=== PATIENT | female | born 1955 | race Caucasian/White ===

== ENCOUNTER 2017-06-01 20:54 | Inpatient (IN) | payer OTHER ==
[~2017-06-01] VITALS: Ht 165.1 cm; Wt 63.7 kg
[~2017-06-01 20:54] MED LIST: ALLERGY PILL PO; GLIM4TAB PO; JANUVIA PO; METF500T4 PO
[2017-06-01 22:11] VITALS: PULSE 62
[2017-06-01 22:15] VITALS: BP 127/71; PULSE 66; RESP 20; Ht 165.1 cm; Wt 63.7 kg
[2017-06-01] MEDS ORDERED: MTF1000T PO (22:34)
[2017-06-01] MEDS ORDERED: AZIT250T6 PO (22:34)
[2017-06-01] MEDS ORDERED: GUAI-637 PO (22:45)
[2017-06-01] MEDS ORDERED: PANT40TA3 PO (22:45)
[2017-06-01] MEDS ORDERED: INSU100C3 SQ (22:45)
[2017-06-01] MEDS ORDERED: ATOR40TA68 PO (22:45)
[2017-06-01] MEDS ORDERED: GEMF600T PO (22:45)
[2017-06-01] MEDS ORDERED: ASPI325T32 PO (22:45)
[2017-06-01] MEDS ORDERED: ENOX60DI13 SQ (22:45)
[2017-06-01] MEDS ORDERED: ALBU2.5V3 NEB (22:45)
[2017-06-01] MEDS ORDERED: NITR1PAT46 TD (22:45)
[2017-06-01] MEDS ORDERED: METO-429 PO (22:45)
[2017-06-01] MEDS ORDERED: CLOP75TA28 PO (22:45)
[2017-06-01] MEDS ORDERED: NIT4 SL (22:45)
[2017-06-01] MEDS ORDERED: GLIP5TAB13 PO (22:45)
[2017-06-01] MEDS ORDERED: IPRA3AMP INHALATION (22:45)
[2017-06-01] MEDS ORDERED: NITROGLYCERIN (SL) 0.4 MG TAB SL PRN (23:00)
[2017-06-01] MEDS ORDERED: ALBUTEROL/IPRATROPIUM (NEB) 3 ML AMP HHN PRN (23:00)
[2017-06-01] MEDS ORDERED: NACL 0.9% 3 ML SYG IV SCH (23:00)
[2017-06-01] MEDS ORDERED: GUAIFENESIN 20 MG/ML 5ML CUP PO PRN (23:00)
[2017-06-01] MEDS ORDERED: ACETAMINOPHEN 325 MG TAB PO PRN (23:00)
[2017-06-01] MEDS ORDERED: ONDANSETRON 4 MG TAB PO PRN (23:00)
[2017-06-01] MEDS ORDERED: GLUCOSE GEL 15 GRAM TUBE PO PRN ×2 (23:30)
[2017-06-01] MEDS ORDERED: GLUCOSE GEL 15 GRAM TUBE BUCCAL PRN (23:30)
[2017-06-01] MEDS ORDERED: GLUCAGON 1 MG INJ IM PRN (23:30)
[2017-06-01] MEDS ORDERED: DEXTROSE 50% 50 ML SYRINGE IV PRN ×2 (23:30)
[2017-06-01] MEDS: ALBUTEROL 0.083% (NEB) 2.5 MG/3 ML AMP NEB SCH ×2 (23:40→23:45)
[2017-06-02] VITALS (26 sets, daily range): BP systolic 96–157; BP diastolic 55–89; PULSE 59–92; RESP 15–23
[2017-06-02] MEDS: ALBUTEROL 0.083% (NEB) 2.5 MG/3 ML AMP NEB SCH ×6 (01:00→21:14)
[2017-06-02 01:09] LABS: BASOPHIL # 0.1 10^3/ul (0.0-0.1); BASOPHILS % 0.6 % (0.0-2.0); EOSINOPHILS # 0.2 10^3/ul (0.0-0.5); EOSINOPHILS % 1.8 % (0.0-7.0); HEMATOCRIT 42.9 % (37.0-47.0); HEMOGLOBIN 14.5 g/dl (12.0-16.0); LYMPHOCYTES # 2.7 10^3/ul (0.8-2.9); LYMPHOCYTES % 33.4 % (15.0-51.0); MEAN CORPUSCULAR HEMOGLOBIN 28.9 pg (29.0-33.0); MEAN CORPUSCULAR HGB CONC 33.8 g/dl (32.0-37.0); MEAN CORPUSCULAR VOLUME 85.6 fl (82.0-101.0); MEAN PLATELET VOLUME 10.1 fl (7.4-10.4); MONOCYTE # 0.6 10^3/ul (0.3-0.9); MONOCYTES % 7.1 % (0.0-11.0); NEUTROPHIL # 4.6 10^3/ul (1.6-7.5); NEUTROPHILS % 56.9 % (39.0-77.0); PLATELET COUNT 247 10^3/UL (140-415); RED BLOOD COUNT 5.01 10^6/ul (4.20-5.40); RED CELL DISTRIBUTION WIDTH 12.2 % (11.5-14.5); WHITE BLOOD COUNT 8.1 10^3/ul (4.8-10.8)
[2017-06-02 01:29] LABS: ALBUMIN 3.4 g/dl (3.3-4.9); ALBUMIN/GLOBULIN RATIO 1.13; BILIRUBIN,INDIRECT 0.6 mg/dl (0-1.1); BILIRUBIN,TOTAL 0.6 mg/dl (0.2-1.3); CALCIUM 9.4 mg/dl (8.4-10.2); CHOL/HDL RATIO 5.1 RATIO; CREATININE 0.5 mg/dl (0.44-1.00); MAGNESIUM 1.7 mg/dl (1.7-2.5); POTASSIUM 3.3 mmol/L (3.5-5.1); TOTAL PROTEIN 6.4 g/dl (6.1-8.1)
[2017-06-02] MEDS: ACCU-CHEK XX SCH (02:00)
[2017-06-02] MEDS ORDERED: ACCU-CHEK XX SCH (02:00)
[2017-06-02] MEDS ORDERED: POTASSIUM CHLORIDE (SR) 20 MEQ TAB PO ONE (06:52)
[2017-06-02] MEDS ORDERED: glipiZIDE 5 MG TAB PO SCH (07:25)
[2017-06-02] MEDS ORDERED: GLIMEPIRIDE 4 MG TAB PO SCH (07:55)
[2017-06-02] MEDS ORDERED: metFORMIN 500 MG TAB PO SCH (07:55)
[2017-06-02] MEDS ORDERED: METOPROLOL 50 MG TAB PO SCH (09:00)
[2017-06-02] MEDS ORDERED: PANTOPRAZOLE (EC) 40 MG TAB PO SCH (09:00)
[2017-06-02] MEDS ORDERED: ASPIRIN (EC) 325 MG TAB PO SCH (09:00)
[2017-06-02] MEDS ORDERED: CLOPIDOGREL 75 MG TAB PO SCH (09:00)
[2017-06-02] MEDS: GEMFIBROZIL 600 MG TAB PO SCH ×2 (09:01→21:42)
--- NOTE | 2017-06-02 09:06 | HP ---
Date/Time of Note Date/Time of Note DATE: 06/02/17 TIME: 09:01 Assessment/Plan VTE Prophylaxis VTE Prophylaxis Intervention: LMWH Lines/Catheters IV Catheter Type (from Nrsg): Mid Line Assessment/Plan Assessment/Plan ASSESSMENT 61-year-old female with a history of CAD, asthma, diabetes, gastritis with erosion presented to outside hospital with chest pain/NSTEMI, transferred here for cardiac cath PLAN Telemetry monitoring Continue cardiac medications Insulin for management of her diabetes PPI, given history of gastritis with erosion Continue therapeutic dose of Lovenox And to be seen by cardiology for cardiac cath GI ppx: PPI DVT ppx: Lovenox HPI/ROS Admit Date/Time Admit Date/Time Jun 01, 2017 at 22:00 Hx of Present Illness This is a 61-year-old female with a history of CAD, asthma, diabetes, gastritis with erosion who initially presented to the outside hospital with chest pain. Patient was transferred to to [facility] because of insurance reasons. She was accepted by Dr. Foster, the cartridge belt puncher for further cardiac cath. Patient has been started on a therapeutic dose of Lovenox at the outside hospital. Currently patient overall is feeling well but complains of still having intermittent chest pain. PMH/Family/Social Social History Smoking Status: Unknown if ever smoked Exam/Review of Systems Vital Signs Vitals Vital Signs Date Time Temp Pulse Resp B/P Pulse Ox O2 Delivery O2 Flow Rate FiO2 06/02/17 08:48 61 06/02/17 07:23 98.4 19 145/68 96 06/01/17 22:15 Room Air Intake and Output 06/01/17 06/01/17 06/02/17 15:00 23:00 07:00 Intake Total 220 ml Balance 220 ml Labs Result Diagram: 06/02/17 0052 06/02/17 0052 Medications Medications Current Medications Ondansetron HCl (Zofran Tab) 4 mg Q6H PRN PO NAUSEA AND/OR VOMITING; Start at 23:00 Acetaminophen (Tylenol Tab) 650 mg Q6H PRN PO PAIN LEVEL 1-3 OR FEVER; Start at 23:00 Aspirin (Ecotrin) 325 mg DAILY PO ; Start 06/02/17 at 09:00 Atorvastatin Calcium (Lipitor) 40 mg QHS PO ; Start 06/02/17 at 21:00 Clopidogrel Bisulfate (plaVIX) 75 mg DAILY PO ; Start 06/02/17 at 09:00 Gemfibrozil (Lopid) 600 mg BID PO ; Start 06/02/17 at 09:00 Guaifenesin (Robitussin Liquid Cup) 100 mg Q4H PRN PO COUGH; Start 06/01/17 at 23:00 Metoprolol Tartrate (Lopressor) 50 mg BID PO ; Start 06/02/17 at 09:00 Nitroglycerin (Nitroglycerin (Sl Tab) 0.4 Mg) 1 tab [id number] PRN SL CHEST PAIN ; Start 06/01/17 at 23:00 Pantoprazole (Protonix Tab) 40 mg DAILY PO ; Start 06/02/17 at 09:00 Insulin Glargine (Lantus) 10 unit DAILY@08 SC ; Start 06/02/17 at 08:00 Diagnostic Test (Pha) (Accu-Chek) 1 ea 02 XX ; Start 06/02/17 at 02:00 Miscellaneous Information 1 ea NOTE XX ; Start 06/01/17 at 23:30 Glucose (Glutose) 15 gm Q15M PRN PO DECREASED GLUCOSE; Start 06/01/17 at 23:30 Glucose (Glutose) 22.5 gm Q15M PRN PO DECREASED GLUCOSE; Start 06/01/17 at 23: 30 Dextrose (D50w Syringe) 25 ml Q15M PRN IV DECREASED GLUCOSE; Start 06/01/17 at 23:30 Dextrose (D50w Syringe) 50 ml Q15M PRN IV DECREASED GLUCOSE; Start 06/01/17 at 23:30 Glucagon (Glucagen) 1 mg Q15M PRN IM DECREASED GLUCOSE; Start 06/01/17 at 23:30 Glucose (Glutose) 15 gm Q15M PRN BUCCAL DECREASED GLUCOSE; Start 06/01/17 at 23 :30 SARAVANAN HOUSTON MD Jun 02, 2017 09:06
[2017-06-02] MEDS: INSULIN GLARGINE [LANtus] 3 ML PEN SC SCH (09:08)
[2017-06-02] MEDS: INSULIN ASPART [NOVOLOG] 3 ML PEN SC SCH ×4 (09:08→21:51)
[2017-06-02] MEDS ORDERED: POLYETHYLENE GLYCOL 17 GM PACKET PO SCH ×2 (11:00→18:00)
--- NOTE | 2017-06-02 12:30 | PN ---
Date/Time of Note Date/Time of Note DATE: 06/02/17 TIME: 12:24 Assessment/Plan VTE Prophylaxis VTE Prophylaxis Intervention: other Lines/Catheters IV Catheter Type (from Nrs): Peripheral IV Assessment/Plan Chief Complaint/Hosp Course Assessment and plan:61-year-old female with a history of CAD, asthma, diabetes, gastritis with erosion presented to outside hospital with chest pain/NSTEMI, transferred here for cardiac cath. 1. Chest pain/non-STEMI: Continue current cardiac medications, including aspirin, Plavix, Lipitor, beta-allison -For left heart cath later today, follow-up post procedure recommendations, consider PT eval, follow cardiology recommendations 2. Type 2 diabetes, continue sliding scale insulin, follow-up A1c, continue Lantus 3. Asthma: Duo nebs as needed 4. Gastritis: H2 allison Problems: Subjective 24 Hr Interval Summary Free Text/Dictation Denies any chest pain. Awaiting cardiac procedure for later today. Exam/Review of Systems Vital Signs Vitals Vital Signs Date Time Temp Pulse Resp B/P Pulse Ox O2 Delivery O2 Flow Rate FiO2 06/02/17 12:21 63 06/02/17 11:09 98.2 19 114/64 96 06/02/17 09:43 21 06/01/17 22:15 Room Air Intake and Output 06/01/17 06/01/17 06/02/17 15:00 23:00 07:00 Intake Total 220 ml Balance 220 ml Exam General: Lying in bed, smiling, talking on the phone, no acute distress HEENT: Pupils equal round reactive to light extraocular muscles intact Neck: Supple Respiratory: Clear to all station bilaterally Cardiovascular: S1-S2 heard no rubs or gallops GI: Nontender, nondistended, soft, normal bowel sounds, no rebound or guarding Muscular skeletal: No lower extending bilaterally Neurologic: No focal deficits Results Result Diagram: 06/02/17 0052 06/02/17 0052 Results 24 hrs Laboratory Tests Test 06/02/17 00:52 06/02/17 08:05 06/02/17 11:46 White Blood Count 8.1 Red Blood Count 5.01 Hemoglobin 14.5 Hematocrit 42.9 Mean Corpuscular Volume 85.6 Mean Corpuscular Hemoglobin 28.9 L Mean Corpuscular Hemoglobin Concent 33.8 Red Cell Distribution Width 12.2 Platelet Count 247 Mean Platelet Volume 10.1 Neutrophils % 56.9 Lymphocytes % 33.4 Monocytes % 7.1 Eosinophils % 1.8 Basophils % 0.6 Nucleated Red Blood Cells % 0.0 Neutrophils # 4.6 Lymphocytes # 2.7 Monocytes # 0.6 Eosinophils # 0.2 Basophils # 0.1 Nucleated Red Blood Cells # 0.0 Activated Partial Thromboplast Time 35.4 H Sodium Level 136 Potassium Level 3.3 L Chloride Level 106 Carbon Dioxide Level 26 Anion Gap 7 L Blood Urea Nitrogen 15 Creatinine 0.50 Glucose Level 128 Hemoglobin A1c Calcium Level 9.4 Phosphorus Level 4.0 Magnesium Level 1.7 Total Bilirubin 0.6 Direct Bilirubin 0.00 Indirect Bilirubin 0.6 Aspartate Amino Transf (AST/SGOT) 18 Alanine Aminotransferase (ALT/SGPT) 25 Alkaline Phosphatase 60 Total Protein 6.4 Albumin 3.4 Globulin 3.00 Albumin/Globulin Ratio 1.13 Triglycerides Level 318 H Cholesterol Level 169 LDL Cholesterol, Calculated 72 HDL Cholesterol 33 L Cholesterol/HDL Ratio 5.1 Bedside Glucose 166 193 Medications Medications Current Medications Ondansetron HCl (Zofran Tab) 4 mg Q6H PRN PO NAUSEA AND/OR VOMITING; Start at 23:00 Acetaminophen (Tylenol Tab) 650 mg Q6H PRN PO PAIN LEVEL 1-3 OR FEVER; Start at 23:00 Aspirin (Ecotrin) 325 mg DAILY PO Last administered on 06/02/17 09:01; Admin Dose 325 MG; Start 06/02/17 at 09:00 Atorvastatin Calcium (Lipitor) 40 mg QHS PO ; Start 06/02/17 at 21:00 Clopidogrel Bisulfate (plaVIX) 75 mg DAILY PO ; Start 06/02/17 at 09:00 Gemfibrozil (Lopid) 600 mg BID PO Last administered on 06/02/17 09:01; Admin Dose 600 MG; Start 06/02/17 at 09:00 Guaifenesin (Robitussin Liquid Cup) 100 mg Q4H PRN PO COUGH; Start 06/01/17 at 23:00 Metoprolol Tartrate (Lopressor) 50 mg BID PO Last administered on 06/02/17 09: 03; Admin Dose 50 MG; Start 06/02/17 at 09:00 Nitroglycerin (Nitroglycerin (Sl Tab) 0.4 Mg) 1 tab [id number] PRN SL CHEST PAIN ; Start 06/01/17 at 23:00 Pantoprazole (Protonix Tab) 40 mg DAILY PO Last administered on 06/02/17 09:01 ; Admin Dose 40 MG; Start 06/02/17 at 09:00 Insulin Glargine (Lantus) 10 unit DAILY@08 SC Last administered on 06/02/17 09 :08; Admin Dose 10 UNIT; Start 06/02/17 at 08:00 Diagnostic Test (Pha) (Accu-Chek) 1 ea 02 XX ; Start 06/02/17 at 02:00 Miscellaneous Information 1 ea NOTE XX ; Start 06/01/17 at 23:30 Glucose (Glutose) 15 gm Q15M PRN PO DECREASED GLUCOSE; Start 06/01/17 at 23:30 Glucose (Glutose) 22.5 gm Q15M PRN PO DECREASED GLUCOSE; Start 06/01/17 at 23: 30 Dextrose (D50w Syringe) 25 ml Q15M PRN IV DECREASED GLUCOSE; Start 06/01/17 at 23:30 Dextrose (D50w Syringe) 50 ml Q15M PRN IV DECREASED GLUCOSE; Start 06/01/17 at 23:30 Glucagon (Glucagen) 1 mg Q15M PRN IM DECREASED GLUCOSE; Start 06/01/17 at 23:30 Glucose (Glutose) 15 gm Q15M PRN BUCCAL DECREASED GLUCOSE; Start 06/01/17 at 23 :30 Polyethylene Glycol (Miralax) 17 gm DAILY PO ; Start 06/02/17 at 11:00 VARSHA MORALES Jun 02, 2017 12:30
[2017-06-02] MEDS ORDERED: LIDOCAINE 1% (MDV) 20 ML INJ ONE (14:40)
[2017-06-02] MEDS ORDERED: IODIXANOL LOCM 100 ML BTL ONE ×3 (14:40→16:25)
[2017-06-02] MEDS ORDERED: FENTAnyl 50 MCG/ML VIAL ONE (14:41)
[2017-06-02] MEDS ORDERED: MIDAZOLAM 1 MG/ML 2 ML INJ ONE (14:41)
[2017-06-02] MEDS ORDERED: NITROGLYCERIN (IC) 100 MCG/ML INJ ONE (15:28)
[2017-06-02] MEDS ORDERED: TICAGRELOR 90 MG TABLET ONE (15:53)
[2017-06-02] MEDS ORDERED: hydrALAzine 20 MG INJ ONE (16:09)
[2017-06-02] MEDS ORDERED: SOD CHLORIDE 0.9% 1,000 ML IV SCH (16:16)
[2017-06-02] MEDS ORDERED: BIVALIRUDIN 250MG /NS 50 ML 50 ML IVPB SCH (16:16)
[2017-06-02] MEDS ORDERED: BIVALIRUDIN 250MG /NS 50 ML 50 ML IVPB ONE (16:25)
[2017-06-02] MEDS ORDERED: ACETAMINOPHEN 325 MG TAB PO PRN (16:30)
[2017-06-02] MEDS ORDERED: TICAGRELOR 90 MG TABLET PO ONE (16:30)
[2017-06-02] MEDS ORDERED: ZOLPIDEM 5 MG TAB PO PRN (16:30)
[2017-06-02] MEDS ORDERED: NITROGLYCERIN (SL) 0.4 MG TAB SL PRN (16:30)
[2017-06-02] MEDS ORDERED: ONDANSETRON 4 MG INJ IV PRN (16:30)
[2017-06-02] MEDS ORDERED: AL HYDROX/MG HYDROX/SIMETH 30 ML CUP PO PRN (16:30)
--- NOTE | 2017-06-02 16:51 | OPR ---
Date/Time of Note Date/Time of Note DATE: 06/02/17 TIME: 16:32 Operative Report Free Text/Dictation 61-year-old female with history of hypertension, diabetes mellitus, dyslipidemia was initially admitted to [facility] with crescendo angina. Patient underwent Lexiscan myocardial perfusion imaging study which came out to be positive for anteroapical ischemia. Patient got transferred to the [facility] for left heart catheterization and coronary angiography and revascularization as guided. Procedure Date: Jun 02, 2017 Preoperative Diagnosis Unstable angina and myocardial perfusion imaging study positive for anteroapical ischemia. Postoperative Diagnosis Severe single-vessel coronary disease with severe proximal stenoses of left anterior descending artery estimated about 90% and another 90% stenosis soon after the first diagonal branch. Operation Performed Left heart catheterization and coronary angiography. Percutaneous transluminal coronary angioplasty and intracoronary stent deployment in proximal left anterior descending artery with stenosis reduction from 90% to completely abolished. A 2.75 mm wide and 28 mm long drug-eluting stent was deployed up to 14 atmospheric pressure with excellent result and complete resolution of stenosis. Surgeon Luis Angel Foster MD Anesthesia Type: moderate sedation Estimated Blood Loss: minimal Transfusion Required: no Specimen: none Grafts/Implants: none Complications: no Pt Condition Post Procedure: stable Disposition: other Indications Unstable angina and myocardial perfusion imaging study positive for anteroapical ischemia. Operative\Procedure Findings Severe stenosis of the proximal left anterior descending artery about 90% and another stenosis of about 90% also after first diagonal branch. Procedure Description After appropriate informed consent was taken patient was brought into cardiac catheterization lab in a fasting state. Left and right groin were prepped and draped in the usual sterile fashion utilizing chlorhexidine. Right groin was infiltrated with 1% lidocaine to achieve local anesthesia. Right femoral artery was cannulated with 6 Guamanian sheath utilizing modified Seldinger technique. JL4, JR4 and pigtail catheter were utilized to do the coronary cineangiogram and left ventricular cineangiogram. Report of left heart catheterization and coronary angiography Left main coronary artery: Left main coronary artery is a good sized vessel without any significant coronary disease. Left anterior descending artery Left anterior descending artery has severe stenosis in the very proximal region starting from the ostium estimated about 90%. Soon after this stenosis there is another 90% stenosis after the diagonal branch. Left circumflex coronary artery left circumflex coronary artery with a good sized vessel. Left circumflex coronary along with its branches have no significant flow obstructive coronary artery disease. Right coronary artery Right coronary artery the big dominant vessel. Right coronary artery along with this branches have no significant flow obstructive coronary artery disease. Hemodynamics Please see the computerized log sheet. Left ventricular end-diastolic pressure is about 14 mm and there is no gradient noted across the aortic valve. Conclusion 1. Severe single-vessel coronary disease with severe stenosis of the proximal and ostial left anterior descending artery estimated about 90% and another 90% stenosis of the proximal left anterior descending artery after the origin of first diagonal branch. 2. Normal hemodynamics with systemic hypertension and no gradient across the aortic valve. Recommendation Recommendation that patient should undergo percutaneous coronary intervention of proximal left anterior descending artery with intracoronary stent deployment. Report of percutaneous transluminal coronary angioplasty and intracoronary stent deployment in the left anterior descending artery. After informed consent was already taken patient was in cardiac catheterization lab. The right femoral artery has [address] 6 Guamanian XB 3.5 left guiding catheter was utilized. BMW wire was taken into the left anterior descending artery under intermittent coronary injection and fluoroscopic guidance. Tip of the wire was left in place in the distal region. Lesions were predilated with 2.5 mm wide balloon and 12 mm long. There was dissection noted in the proximal region. At this 0.2 0.75 mm right and 28 mm long drug- eluting stent was taken to the severe stenotic site and after careful positioning under fluoroscopy guidance and intermittent coronary injection stent was deployed. First pressure was up to 11 atmospheric pressure for 20 seconds. There was excellent result. Second inflation was also given up to 14 atmospheric pressure for 15 seconds. Balloon was withdrawn into the guiding catheter and cineangiogram performed which confirmed the excellent result with complete resolution of stenosis. At this point whole system was withdrawn out of guiding catheter. Final cineangiogram performed which confirmed excellent result with complete resolution of the stenosis. Patient tolerated procedure very well without any immediate complications and left the cardiac catheterization lab in a stable state with intact distal pedal pulses. Angiomax was given during the interventional procedure. And patient was loaded with Brilinta 180 mg at the conclusion of procedure. Conclusion 1. Successful percutaneous starting coronary angioplasty of the proximal left anterior descending artery. #2 Successful percutaneous transluminal intracoronary stent deployment in proximal left anterior descending artery restenosis reduction from 90% to completely abolished. A 2.7 5 mm wide and 28 mm long drug-eluting stent was deployed up to 14 atmospheric pressure with excellent result and complete resolution of stenosis. Recommendation Recommendation is that patient should be aggressively treated with risk reduction including diabetes mellitus, hypertension or dyslipidemia. And patient should be on dual antiplatelet therapy including low-dose aspirin and Brilinta for at least one year. Copies To: CC: LUIS ANGEL FOSTER MD; NATALIA MELENDREZ MD, RAVI MD Jun 02, 2017 16:49
--- NOTE | 2017-06-02 16:56 | PN ---
Date/Time of Note Date/Time of Note DATE: 06/02/17 TIME: 16:51 Assessment/Plan VTE Prophylaxis VTE Prophylaxis Intervention: ambulation Lines/Catheters IV [facility]ter [facility] (from [facility]): Peripheral IV Assessment/Plan Chief Complaint/Hosp Course 1. Unstable angina and myocardial perfusion imaging study positive for anteroseptal ischemia. 2. Coronary artery disease. 3. Hypertension. 4. Diabetes mellitus, poorly controlled. 5. Dyslipidemia. Problems: Assessment/Plan Patient with multiple risk factor for coronary disease admitted with unstable angina and myocardial perfusion imaging study positive for anteroapical ischemia. Plan is to perform left heart catheterization and coronary angiography and revascularization procedure as guided. I have discussed with patient risks benefits and alternatives of the procedure. Patient appears to have understood the procedure and is willing to proceed with it. Subjective 24 Hr Interval Summary Free Text/Dictation Ms. Darshan Velasquez is a 61-year-old female who has history of hypertension, diabetes mellitus, dyslipidemia was initially admitted to [facility] with unstable angina and increasing chest pain. Patient was ruled out for myocardial infarction. Patient underwent Lexiscan myocardial perfusion imaging study which was positive for anteroapical ischemia. Patient was transferred to [facility] for left heart catheterization and coronary angiogram and possible percutaneous coronary intervention. Exam/Review of Systems Vital Signs Vitals Vital Signs Date Time Temp Pulse Resp B/P Pulse Ox O2 Delivery O2 Flow Rate FiO2 06/02/17 13:24 59 20 98 21 06/02/17 11:09 98.2 114/64 06/01/17 22:15 Room Air Intake and Output 06/01/17 06/01/17 06/02/17 15:00 23:00 07:00 Intake Total 220 ml Balance 220 ml Results Result Diagram: 06/02/17 0052 06/02/17 0052 Results 24 hrs Laboratory Tests Test 06/02/17 00:52 06/02/17 08:05 06/02/17 11:46 White Blood Count 8.1 Red Blood Count 5.01 Hemoglobin 14.5 Hematocrit 42.9 Mean Corpuscular Volume 85.6 Mean Corpuscular Hemoglobin 28.9 L Mean Corpuscular Hemoglobin Concent 33.8 Red Cell Distribution Width 12.2 Platelet Count 247 Mean Platelet Volume 10.1 Neutrophils % 56.9 Lymphocytes % 33.4 Monocytes % 7.1 Eosinophils % 1.8 Basophils % 0.6 Nucleated Red Blood Cells % 0.0 Neutrophils # 4.6 Lymphocytes # 2.7 Monocytes # 0.6 Eosinophils # 0.2 Basophils # 0.1 Nucleated Red Blood Cells # 0.0 Activated Partial Thromboplast Time 35.4 H Sodium Level 136 Potassium Level 3.3 L Chloride Level 106 Carbon Dioxide Level 26 Anion Gap 7 L Blood Urea Nitrogen 15 Creatinine 0.50 Glucose Level 128 Hemoglobin A1c Calcium Level 9.4 Phosphorus Level 4.0 Magnesium Level 1.7 Total Bilirubin 0.6 Direct Bilirubin 0.00 Indirect Bilirubin 0.6 Aspartate Amino Transf (AST/SGOT) 18 Alanine Aminotransferase (ALT/SGPT) 25 Alkaline Phosphatase 60 Total Protein 6.4 Albumin 3.4 Globulin 3.00 Albumin/Globulin Ratio 1.13 Triglycerides Level 318 H Cholesterol Level 169 LDL Cholesterol, Calculated 72 HDL Cholesterol 33 L Cholesterol/HDL Ratio 5.1 Bedside Glucose 166 193 Medications Medications Current Medications Ondansetron HCl (Zofran Tab) 4 mg Q6H PRN PO NAUSEA AND/OR VOMITING; Start at 23:00 Acetaminophen (Tylenol Tab) 650 mg Q6H PRN PO PAIN LEVEL 1-3 OR FEVER; Start at 23:00 Aspirin (Ecotrin) 325 mg DAILY PO Last administered on 06/02/17 09:01; Admin Dose 325 MG; Start 06/02/17 at 09:00 Atorvastatin Calcium (Lipitor) 40 mg QHS PO ; Start 06/02/17 at 21:00 Clopidogrel Bisulfate (plaVIX) 75 mg DAILY PO ; Start 06/02/17 at 09:00 Gemfibrozil (Lopid) 600 mg BID PO Last administered on 06/02/17 09:01; Admin Dose 600 MG; Start 06/02/17 at 09:00 Guaifenesin (Robitussin Liquid Cup) 100 mg Q4H PRN PO COUGH; Start 06/01/17 at 23:00 Metoprolol Tartrate (Lopressor) 50 mg BID PO Last administered on 06/02/17 09: 03; Admin Dose 50 MG; Start 06/02/17 at 09:00 Nitroglycerin (Nitroglycerin (Sl Tab) 0.4 Mg) 1 tab [id number] PRN SL CHEST PAIN ; Start 06/01/17 at 23:00 Insulin Glargine (Lantus) 10 unit DAILY@08 SC Last administered on 06/02/17t 09 :08; Admin Dose 10 UNIT; Start 06/02/17 at 08:00 Diagnostic Test (Pha) (Accu-Chek) 1 ea 02 XX ; Start 06/02/17 at 02:00 Miscellaneous Information 1 ea NOTE XX ; Start 06/01/17 at 23:30 Glucose (Glutose) 15 gm Q15M PRN PO DECREASED GLUCOSE; Start 06/01/17 at 23:30 Glucose (Glutose) 22.5 gm Q15M PRN PO DECREASED GLUCOSE; Start 06/01/17 at 23: 30 Dextrose (D50w Syringe) 25 ml Q15M PRN IV DECREASED GLUCOSE; Start 06/01/17 at 23:30 Dextrose (D50w Syringe) 50 ml Q15M PRN IV DECREASED GLUCOSE; Start 06/01/17 at 23:30 Glucagon (Glucagen) 1 mg Q15M PRN IM DECREASED GLUCOSE; Start 06/01/17 at 23:30 Glucose (Glutose) 15 gm Q15M PRN BUCCAL DECREASED GLUCOSE; Start 06/01/17 at 23 :30 Famotidine (Pepcid) 20 mg DAILY PO ; Start 06/03/17 at 09:00 Polyethylene Glycol (Miralax) 17 gm DAILY PO ; Start 06/02/17 at 18:00 Copies To: CC: JERRICA SALDAÑA MD, RAVI MD Jun 02, 2017 16:56
[2017-06-02] MEDS ORDERED: TICAGRELOR 90 MG TABLET PO SCH (17:10)
[2017-06-02] MEDS ORDERED: NITROGLYCERIN 2% 1 GM OINT PKT TD ONE (17:30)
[2017-06-02] MEDS ORDERED: ATROPINE 1 MG/10 ML SYRINGE ONE (20:08)
[2017-06-02] MEDS ORDERED: ATORVASTATIN 80 MG TAB PO SCH (21:00)
[2017-06-02] MEDS ORDERED: ATORVASTATIN 40 MG TAB PO SCH (21:00)
[2017-06-02] MEDS: METOPROLOL 50 MG TAB PO SCH (21:00)
[2017-06-02] MEDS: FAMOTIDINE 20 MG TAB PO SCH (21:43)
[2017-06-02] MEDS: TICAGRELOR 90 MG TABLET PO SCH (21:44)
[2017-06-02] MEDS: DOCUSATE SODIUM 100 MG CAP PO SCH (21:44)
[2017-06-02] MEDS: NITROGLYCERIN 2% 1 GM OINT PKT TD SCH (21:52)
[2017-06-03] VITALS (16 sets, daily range): BP systolic 91–140; BP diastolic 57–89; PULSE 71–91; RESP 13–22
[2017-06-03] MEDS: ALBUTEROL 0.083% (NEB) 2.5 MG/3 ML AMP NEB SCH ×4 (01:15→12:17)
[2017-06-03] MEDS: ACCU-CHEK XX SCH (02:50)
[2017-06-03] MEDS: NITROGLYCERIN 2% 1 GM OINT PKT TD SCH (06:00)
[2017-06-03 06:49] LABS: BASOPHILS % 0.4 % (0.0-2.0); EOSINOPHILS # 0.1 10^3/ul (0.0-0.5); EOSINOPHILS % 0.9 % (0.0-7.0); HEMATOCRIT 41.7 % (37.0-47.0); HEMOGLOBIN 13.9 g/dl (12.0-16.0); LYMPHOCYTES # 1.5 10^3/ul (0.8-2.9); LYMPHOCYTES % 21.5 % (15.0-51.0); MEAN CORPUSCULAR HEMOGLOBIN 28.6 pg (29.0-33.0); MEAN CORPUSCULAR HGB CONC 33.3 g/dl (32.0-37.0); MEAN CORPUSCULAR VOLUME 85.8 fl (82.0-101.0); MEAN PLATELET VOLUME 10.2 fl (7.4-10.4); MONOCYTE # 0.6 10^3/ul (0.3-0.9); NEUTROPHIL # 4.6 10^3/ul (1.6-7.5); NEUTROPHILS % 67.9 % (39.0-77.0); PLATELET COUNT 237 10^3/UL (140-415); RED BLOOD COUNT 4.86 10^6/ul (4.20-5.40); RED CELL DISTRIBUTION WIDTH 12.5 % (11.5-14.5); WHITE BLOOD COUNT 6.8 10^3/ul (4.8-10.8)
[2017-06-03 07:13] LABS: CALCIUM 9.5 mg/dl (8.4-10.2); CREATININE 0.55 mg/dl (0.44-1.00); POTASSIUM 4.1 mmol/L (3.5-5.1)
[2017-06-03] MEDS: INSULIN ASPART [NOVOLOG] 3 ML PEN SC SCH ×2 (07:35→13:03)
[2017-06-03] MEDS: TICAGRELOR 90 MG TABLET PO SCH (08:28)
[2017-06-03] MEDS: INSULIN GLARGINE [LANtus] 3 ML PEN SC SCH (08:29)
[2017-06-03] MEDS: GEMFIBROZIL 600 MG TAB PO SCH (08:31)
[2017-06-03] MEDS: FAMOTIDINE 20 MG TAB PO SCH (08:31)
[2017-06-03] MEDS: DOCUSATE SODIUM 100 MG CAP PO SCH (08:31)
[2017-06-03] MEDS ORDERED: FAMOTIDINE 20 MG TAB PO SCH (09:00)
[2017-06-03] MEDS ORDERED: ASPIRIN (EC) 81 MG TAB PO SCH (09:00)
[2017-06-03] MEDS ORDERED: LOSARTAN 50 MG TAB PO SCH (09:00)
--- NOTE | 2017-06-03 09:33 | PN ---
Date/Time of Note Date/Time of Note DATE: 06/03/17 TIME: 09:26 Assessment/Plan VTE Prophylaxis VTE Prophylaxis Intervention: SCD's Lines/Catheters IV Catheter Type (from Nrs): Peripheral IV Assessment/Plan Chief Complaint/Hosp Course Assessment and plan:61-year-old female with a history of CAD, asthma, diabetes, gastritis with erosion presented to outside hospital with chest pain/NSTEMI, transferred here for cardiac cath, status post angioplasty and drug-eluting stent placement to LAD. 1. Chest pain/non-STEMI: Again, patient is s/p percutaneous transluminal coronary angioplasty and intracoronary stent deployment in proximal left anterior descending artery with stenosis reduction from 90% to completely abolished. - continue current cardiac medications, including aspirin, Brilinta, Lipitor , beta-allison - follow cardiology recommendations 2. Type 2 diabetes-sugars in the high normal range: Continue sliding scale insulin, follow-up A1c, continue Lantus 3. Asthma: Duo nebs as needed 4. Gastritis: H2 allison Critical care time spent on patient care today equals 45 minutes. Problems: Subjective 24 Hr Interval Summary Free Text/Dictation Patient had left heart cath yesterday, with angioplasty and stent performed. No acute events overnight, denies chest pain. Exam/Review of Systems Vital Signs Vitals Vital Signs Date Time Temp Pulse Resp B/P Pulse Ox O2 Delivery O2 Flow Rate FiO2 06/03/17 09:04 82 18 98 21 06/03/17 07:41 98.1 105/78 Room Air Intake and Output 06/02/17 06/02/17 06/03/17 15:00 23:00 07:00 Intake Total 925 ml 100 ml Output Total 300 ml 850 ml Balance 625 ml -750 ml Exam General: Sitting in chair in the room, no acute distress HEENT: Pupils equal round reactive to light extraocular muscles intact Neck: Supple Respiratory: Clear to all station bilaterally Cardiovascular: S1-S2 heard no rubs or gallops GI: Nontender, nondistended, soft, normal bowel sounds, no rebound or guarding Muscular skeletal: No lower extending bilaterally Neurologic: No focal deficits Results Result Diagram: 06/03/17 0620 06/03/17 0620 Results 24 hrs Laboratory Tests Test 06/02/17 11:46 06/02/17 17:35 06/02/17 21:30 06/02/17 22:42 Bedside Glucose 193 107 239 H Troponin I 0.440 *H Test 06/03/17 02:49 06/03/17 06:20 06/03/17 08:26 Bedside Glucose 158 136 White Blood Count 6.8 Red Blood Count 4.86 Hemoglobin 13.9 Hematocrit 41.7 Mean Corpuscular Volume 85.8 Mean Corpuscular Hemoglobin 28.6 L Mean Corpuscular Hemoglobin Concent 33.3 Red Cell Distribution Width 12.5 Platelet Count 237 Mean Platelet Volume 10.2 Neutrophils % 67.9 Lymphocytes % 21.5 Monocytes % 9.0 Eosinophils % 0.9 Basophils % 0.4 Nucleated Red Blood Cells % 0.0 Neutrophils # 4.6 Lymphocytes # 1.5 Monocytes # 0.6 Eosinophils # 0.1 Basophils # 0.0 Nucleated Red Blood Cells # 0.0 Sodium Level 140 Potassium Level 4.1 Chloride Level 109 Carbon Dioxide Level 25 Anion Gap 10 Blood Urea Nitrogen 12 Creatinine 0.55 Glucose Level 123 Calcium Level 9.5 Troponin I 3.820 *H Medications Medications Current Medications Ondansetron HCl (Zofran Tab) 4 mg Q6H PRN PO NAUSEA AND/OR VOMITING; Start at 23:00 Gemfibrozil (Lopid) 600 mg BID PO Last administered on 06/03/17 08:31; Admin Dose 600 MG; Start 06/02/17 at 09:00 Guaifenesin (Robitussin Liquid Cup) 100 mg Q4H PRN PO COUGH Last administered on 06/03/17 08:30; Admin Dose 100 MG; Start 06/01/17 at 23:00 Insulin Glargine (Lantus) 10 unit DAILY@08 SC Last administered on 06/03/17 08 :29; Admin Dose 10 UNIT; Start 06/02/17 at 08:00 Diagnostic Test (Pha) (Accu-Chek) 1 ea 02 XX Last administered on 06/03/17 02: 50; Admin Dose 1 EA; Start 06/02/17 at 02:00 Miscellaneous Information 1 ea NOTE XX ; Start 06/01/17 at 23:30 Glucose (Glutose) 15 gm Q15M PRN PO DECREASED GLUCOSE; Start 06/01/17 at 23:30 Glucose (Glutose) 22.5 gm Q15M PRN PO DECREASED GLUCOSE; Start 06/01/17 at 23: 30 Dextrose (D50w Syringe) 25 ml Q15M PRN IV DECREASED GLUCOSE; Start 06/01/17 at 23:30 Dextrose (D50w Syringe) 50 ml Q15M PRN IV DECREASED GLUCOSE; Start 06/01/17 at 23:30 Glucagon (Glucagen) 1 mg Q15M PRN IM DECREASED GLUCOSE; Start 06/01/17 at 23:30 Glucose (Glutose) 15 gm Q15M PRN BUCCAL DECREASED GLUCOSE; Start 06/01/17 at 23 :30 Polyethylene Glycol (Miralax) 17 gm DAILY PO Last administered on 06/02/17 17: 46; Admin Dose 17 GM; Start 06/02/17 at 18:00 Aspirin (Halfprin) 81 mg DAILY PO Last administered on 06/03/17 08:47; Admin Dose 81 MG; Start 06/03/17 at 09:00 Ticagrelor (Brilinta) 90 mg BID PO Last administered on 06/03/17 08:28; Admin Dose 90 MG; Start 06/02/17 at 21:00 Nitroglycerin (Nitroglycerin 2% Oint) 1 inch Q8 TD ; Start 06/02/17 at 22:00 Nitroglycerin (Nitroglycerin (Sl Tab) 0.4 Mg) 1 tab Q5M PRN SL CHEST PAIN; Start 06/02/17 at 16:30 Losartan Potassium (Cozaar) 50 mg DAILY PO Last administered on 06/03/17 08:30 ; Admin Dose 50 MG; Start 06/03/17 at 09:00 Acetaminophen (Tylenol Tab) 650 mg Q4H PRN PO NON-CARDIAC PAIN LEVEL 1-3; Start 06/02/17 at 16:30 Al Hydrox/Mg Hydrox/Simethicone (Mag-Al Plus) 30 ml Q4H PRN PO GASTROINTESTINAL UPSET; Start 06/02/17 at 16:30 Ondansetron HCl (Zofran Inj) 4 mg Q4H PRN IV NAUSEA AND/OR VOMITING Last administered on 06/02/17 20:18; Admin Dose 4 MG; Start 06/02/17 at 16:30 Docusate Sodium (Colace) 100 mg BID PO Last administered on 06/03/17 08:31; Admin Dose 100 MG; Start 06/02/17 at 21:00 Famotidine (Pepcid) 20 mg Q12 PO Last administered on 06/03/17 08:31; Admin Dose 20 MG; Start 06/02/17 at 21:00 Metoprolol Tartrate (Lopressor) 50 mg BID PO ; Start 06/02/17 at 21:00 Atorvastatin Calcium (Lipitor) 80 mg DAILY@21 PO Last administered on 21:51; Admin Dose 80 MG; Start 06/02/17 at 21:00 VARSHA MORALES Jun 03, 2017 09:32
[2017-06-03] MEDS: METOPROLOL 50 MG TAB PO SCH (11:18)
--- NOTE | 2017-06-03 13:19 | PN ---
Date/Time of Note Date/Time of Note DATE: 06/03/17 TIME: 13:13 Assessment/Plan VTE Prophylaxis VTE Prophylaxis Intervention: ambulation Lines/Catheters IV [facility]ter Type [facility]): Peripheral IV Central line still needed: No Assessment/Plan Chief Complaint/Hosp Course 1. Severe coronary disease, status post intracoronary stent in proximal left anterior descending artery. 2. Coronary artery disease. 3. Hypertension. 4. Diabetes mellitus, poorly controlled. 5. Dyslipidemia. Problems: Assessment/Plan Patient doing very well overall now. No further chest pain or shortness of breath. Right groin has no complications of hematoma or aneurysm. Good distal pedal pulses. Laboratory data were reviewed. Troponin I has a little bump today past coronary intervention. EKG is improving. Plan is to ambulate as tolerated. If patient does well then patient can be discharged home and can have outpatient follow-up in my office. Discussed with patient and family need to aggressively control risk factor including diabetes mellitus, hypertension and dyslipidemia. Patient diabetes mellitus was poorly controlled prior to admission her hemoglobin A1c was 13.9. Will follow. Subjective 24 Hr Interval Summary Free Text/Dictation Patient doing very well overall now. No further chest pain or shortness of breath. Right groin has no complications. Good distal pedal pulses. Constitutional: improved, no complaints Eyes: no complaints ENT: no complaints Respiratory: no complaints Cardiovascular: no complaints Gastrointestinal: no complaints Exam/Review of Systems Vital Signs Vitals Vital Signs Date Time Temp Pulse Resp B/P Pulse Ox O2 Delivery O2 Flow Rate FiO2 06/03/17 12:18 68 16 100 21 06/03/17 07:41 98.1 105/78 Room Air Intake and Output 06/02/17 06/02/17 06/03/17 15:00 23:00 07:00 Intake Total 925 ml 100 ml Output Total 300 ml 850 ml Balance 625 ml -750 ml Exam Constitutional: alert, oriented, well developed Psych: nl mood/affect, no complaints Head: atraumatic, normocephalic Eyes: EOMI, PERRL, nl conjunctiva, nl lids, nl sclera Neck: non-tender, supple Respiratory: clear to auscultation, normal air movement Cardiovascular: nl pulses, regular rate and rhythm Gastrointestinal: nl liver, spleen, non-tender, soft Musculoskeletal: nl extremities to inspection, nl gait and stance Extremities: normal pulses Neurological: [employer] II-XII intact, nl mental status, nl speech, nl strength Results Result Diagram: 06/03/17 0620 06/03/17 0620 Results 24 hrs Laboratory Tests Test 06/02/17 17:35 06/02/17 21:30 06/02/17 22:42 06/03/17 02:49 Bedside Glucose 107 239 H 158 Troponin I 0.440 *H Test 06/03/17 06:20 06/03/17 08:26 06/03/17 12:41 White Blood Count 6.8 Red Blood Count 4.86 Hemoglobin 13.9 Hematocrit 41.7 Mean Corpuscular Volume 85.8 Mean Corpuscular Hemoglobin 28.6 L Mean Corpuscular Hemoglobin Concent 33.3 Red Cell Distribution Width 12.5 Platelet Count 237 Mean Platelet Volume 10.2 Neutrophils % 67.9 Lymphocytes % 21.5 Monocytes % 9.0 Eosinophils % 0.9 Basophils % 0.4 Nucleated Red Blood Cells % 0.0 Neutrophils # 4.6 Lymphocytes # 1.5 Monocytes # 0.6 Eosinophils # 0.1 Basophils # 0.0 Nucleated Red Blood Cells # 0.0 Sodium Level 140 Potassium Level 4.1 Chloride Level 109 Carbon Dioxide Level 25 Anion Gap 10 Blood Urea Nitrogen 12 Creatinine 0.55 Glucose Level 123 Calcium Level 9.5 Troponin I 3.820 *H Bedside Glucose 136 221 H Medications Medications Current Medications Ondansetron HCl (Zofran Tab) 4 mg Q6H PRN PO NAUSEA AND/OR VOMITING; Start at 23:00 Gemfibrozil (Lopid) 600 mg BID PO Last administered on 06/03/17 08:31; Admin Dose 600 MG; Start 06/02/17 at 09:00 Guaifenesin (Robitussin Liquid Cup) 100 mg Q4H PRN PO COUGH Last administered on 06/03/17 08:30; Admin Dose 100 MG; Start 06/01/17 at 23:00 Insulin Glargine (Lantus) 10 unit DAILY@08 SC Last administered on 06/03/17 08 :29; Admin Dose 10 UNIT; Start 06/02/17 at 08:00 Diagnostic Test (Pha) (Accu-Chek) 1 ea 02 XX Last administered on 06/03/17 02: 50; Admin Dose 1 EA; Start 06/02/17 at 02:00 Miscellaneous Information 1 ea NOTE XX ; Start 06/01/17 at 23:30 Glucose (Glutose) 15 gm Q15M PRN PO DECREASED GLUCOSE; Start 06/01/17 at 23:30 Glucose (Glutose) 22.5 gm Q15M PRN PO DECREASED GLUCOSE; Start 06/01/17 at 23: 30 Dextrose (D50w Syringe) 25 ml Q15M PRN IV DECREASED GLUCOSE; Start 06/01/17 at 23:30 Dextrose (D50w Syringe) 50 ml Q15M PRN IV DECREASED GLUCOSE; Start 06/01/17 at 23:30 Glucagon (Glucagen) 1 mg Q15M PRN IM DECREASED GLUCOSE; Start 06/01/17 at 23:30 Glucose (Glutose) 15 gm Q15M PRN BUCCAL DECREASED GLUCOSE; Start 06/01/17 at 23 :30 Polyethylene Glycol (Miralax) 17 gm DAILY PO Last administered on 06/02/17 17: 46; Admin Dose 17 GM; Start 06/02/17 at 18:00 Aspirin (Halfprin) 81 mg DAILY PO Last administered on 06/03/17 08:47; Admin Dose 81 MG; Start 06/03/17 at 09:00 Ticagrelor (Brilinta) 90 mg BID PO Last administered on 06/03/17 08:28; Admin Dose 90 MG; Start 06/02/17 at 21:00 Nitroglycerin (Nitroglycerin 2% Oint) 1 inch Q8 TD ; Start 06/02/17 at 22:00 Nitroglycerin (Nitroglycerin (Sl Tab) 0.4 Mg) 1 tab Q5M PRN SL CHEST PAIN; Start 06/02/17 at 16:30 Losartan Potassium (Cozaar) 50 mg DAILY PO Last administered on 06/03/17 08:30 ; Admin Dose 50 MG; Start 06/03/17 at 09:00 Acetaminophen (Tylenol Tab) 650 mg Q4H PRN PO NON-CARDIAC PAIN LEVEL 1-3; Start 06/02/17 at 16:30 Al Hydrox/Mg Hydrox/Simethicone (Mag-Al Plus) 30 ml Q4H PRN PO GASTROINTESTINAL UPSET; Start 06/02/17 at 16:30 Ondansetron HCl (Zofran Inj) 4 mg Q4H PRN IV NAUSEA AND/OR VOMITING Last administered on 06/02/17 20:18; Admin Dose 4 MG; Start 06/02/17 at 16:30 Docusate Sodium (Colace) 100 mg BID PO Last administered on 06/03/17 08:31; Admin Dose 100 MG; Start 06/02/17 at 21:00 Famotidine (Pepcid) 20 mg Q12 PO Last administered on 06/03/17 08:31; Admin Dose 20 MG; Start 06/02/17 at 21:00 Metoprolol Tartrate (Lopressor) 50 mg BID PO Last administered on 06/03/17 11: 18; Admin Dose 50 MG; Start 06/02/17 at 21:00 Atorvastatin Calcium (Lipitor) 80 mg DAILY@21 PO Last administered on 21:51; Admin Dose 80 MG; Start 06/02/17 at 21:00 JERRICA SALDAÑA MD Jun 03, 2017 13:19
--- NOTE | 2017-06-03 14:10 | PDOCDIS ---
Discharge Instructions CONDITION Patient Condition: Stable HOME CARE INSTRUCTIONS: Special Diet: 1800 ADA, 2GM NA ACTIVITY: Activity Restrictions: Slowly Increase Activity FOLLOW UP/APPOINTMENTS Follow-up Plan Follow up with MD in 1 week in clinic, take your medications as prescribed. VARSHA MORALES Jun 03, 2017 14:09
--- NOTE | 2017-06-03 16:21 | DS ---
DATE OF ADMISSION: 06/01/2017 DATE OF DISCHARGE: 06/03/2017 HISTORY OF PRESENT ILLNESS: This is a 61-year-old female originally admitted on June 02, 2017, being discharged home on June 03, 2017. The patient came in with history of coronary artery disease, and now has type 2 diabetes and gastritis, and came in with chest pain that was diagnosed as non- ST elevation CO, and was actually transferred here to have a cardiac catheterization performed. HOSPITAL COURSE: The patient was admitted, seen by cardiology team. The patient underwent a cardiac catheterization, and the patient was found with severe single-vessel coronary disease with severe proximal stenosis of the LAD, estimating about 90 percent and another 90 percent stenosis soon after the 1st diagonal branch. The patient underwent angioplasty. Patient tolerated the procedure well. Afterward, the patient was continued on current cardiac medications. The patient was able to ambulate and tolerate a p.o. diet. The patient's A1c was found to be elevated, however, at outside hospitals around 12.3, and adjustments were made to the diabetes medicines, and getting clearance from cardiology team, the patient will be discharged home today in improved condition. DISCHARGE MEDICATIONS AND FOLLOWUP: She will go home with metformin 1000 mg p.o. b.i.d., Amaryl 4 mg p.o. daily, nitroglycerin sublingual every 5 minutes p.r.n., Lipitor 80 mg q.h.s., losartan 50 mg daily, Lopressor 50 mg p.o. b.i.d., aspirin 81 mg daily, Brilinta 90 mg p.o. b.i.d. The patient will need to follow up with her cardiology doctor and primary care doctor in clinic in the next 1-2 weeks. FINAL DIAGNOSES: 1. Chest pain secondary to a combination of unstable angina and non-ST elevation myocardial infarction (CO), status post left heart catheterization with angioplasty performed for LAD stenosis. 2. Type 2 diabetes, poorly controlled, A1c 12.3. 3. High cholesterol. 4. Essential hypertension. 5. History of coronary artery disease. 6. History of gastritis in the past with erosion. TIME SPENT: Time spent discharging the patient, 45 minutes. Dictated By: Gerry Cardona MD /saw/cecille /Document#: [id number]
--- NOTE | 2017-06-03 20:18 | RADRPT ---
Vent Rate: 90 bpm RR Interval: 0 msec [place] Interval: 176 msec QRS Duration: 100 msec QT Interval: 402 msec QTC Interval: 491 msec P-R-T [place]: 65 - 59 - 48 degrees Normal sinus rhythm ST amp; T wave abnormality, consider anterior ischemia Prolonged QT Abnormal ECG Electronically Signed By: Juan Miguel Salmon [id number]
[2017-06-04] MEDS ORDERED: LOSA50TA6 PO (10:44)
[2017-06-04] MEDS ORDERED: ASPI-664 PO (10:45)
[2017-06-04] MEDS ORDERED: ATOR80TA75 PO (10:45)
[2017-06-04] MEDS ORDERED: TICA90TA PO (10:45)
[2017-06-04] MEDS ORDERED: NIT3 SL (10:46)
[2017-06-04] MEDS ORDERED: ADV25050 INHALATION (10:47)
[2017-06-04] MEDS ORDERED: BUDE6HFA INHALATION (10:47)
== END 2017-06-03 15:00 | disposition home or self-care (01) | DRG 247 ==
LOC: TEL 22:00 → ICU 06-02 17:05
PROVIDERS: ADMIT Internal Medicine Cardiovascular Disease; ATTEND Internal Medicine Cardiovascular Disease
PROC: B2111ZZ Fluoroscopy of Multiple Coronary Arteries using Low Osmolar Contrast (ICD-10-PCS; 2017-06-02)
PROC: B2151ZZ Fluoroscopy of Left Heart using Low Osmolar Contrast (ICD-10-PCS; 2017-06-02)
PROC: 027034Z Dilation of Coronary Artery, One Artery with Drug-eluting Intraluminal Device, Percutaneous Approach (ICD-10-PCS; principal; 2017-06-02 14:00)
PROC: 4A023N7 Measurement of Cardiac Sampling and Pressure, Left Heart, Percutaneous Approach (ICD-10-PCS; 2017-06-02 14:00)
DX: I21.4 Non-ST elevation (NSTEMI) myocardial infarction (principal); E11.65 Type 2 diabetes mellitus with hyperglycemia; I10 Essential (primary) hypertension; I25.110 Atherosclerotic heart disease of native coronary artery with unstable angina pectoris; J45.909 Unspecified asthma, uncomplicated; K29.50 Unspecified chronic gastritis without bleeding; E78.5 Hyperlipidemia, unspecified; Z79.4 Long term (current) use of insulin; Z79.82 Long term (current) use of aspirin; Z79.02 Long term (current) use of antithrombotics/antiplatelets
CPT/HCPCS: 80048; 80053; 80061; 82962; 83036; 83735; 84100; 84484; 85025; 85730; 87081; 93005; 93458; 94640; C1725; C1769; C1874; C1887; C1894; C9600; J0360; J0461; J0583; J1644; J1815; J2250; J2405; J3010; J7030; Q9967

== ENCOUNTER 2017-06-04 08:36 | Emergency (ER) | payer OTHER ==
[~2017-06-04] VITALS: Ht 165.1 cm; Wt 63.0 kg
[~2017-06-04 08:36] MED LIST changes: +ALBU2.5V3 NEB; +AZIT250T6 PO; +GEMF600T PO; +GUAI-637 PO; +INSU100C3 SQ; +IPRA3AMP INHALATION; -METF500T4 PO; +METO-429 PO; +MTF1000T PO; +NIT4 SL; +NITR1PAT46 TD; +PANT40TA3 PO
[2017-06-04 08:37] VITALS: Ht 165.1 cm; Wt 63.0 kg
[2017-06-04] MEDS ORDERED: IPRATROPIUM (NEB) 0.5 MG/2.5 ML AMP INH STA (09:06)
[2017-06-04] MEDS ORDERED: ALBUTEROL 0.5% (NEB) 2.5 MG/0.5 ML AMP INH STA (09:06)
[2017-06-04] MEDS ORDERED: METHYLPREDNISOLONE 125 MG INJ IV STA (09:06)
[2017-06-04 09:35] LABS: BASOPHILS % 0.5 % (0.0-2.0); EOSINOPHILS # 0.1 10^3/ul (0.0-0.5); EOSINOPHILS % 0.8 % (0.0-7.0); HEMATOCRIT 43.6 % (37.0-47.0); HEMOGLOBIN 14.8 g/dl (12.0-16.0); LYMPHOCYTES # 1.5 10^3/ul (0.8-2.9); LYMPHOCYTES % 20.1 % (15.0-51.0); MEAN CORPUSCULAR HEMOGLOBIN 28.8 pg (29.0-33.0); MEAN CORPUSCULAR HGB CONC 33.9 g/dl (32.0-37.0); MEAN CORPUSCULAR VOLUME 84.8 fl (82.0-101.0); MEAN PLATELET VOLUME 10.2 fl (7.4-10.4); MONOCYTE # 0.5 10^3/ul (0.3-0.9); MONOCYTES % 7.1 % (0.0-11.0); NEUTROPHIL # 5.3 10^3/ul (1.6-7.5); NEUTROPHILS % 71.1 % (39.0-77.0); PLATELET COUNT 288 10^3/UL (140-415); RED BLOOD COUNT 5.14 10^6/ul (4.20-5.40); RED CELL DISTRIBUTION WIDTH 12.4 % (11.5-14.5); WHITE BLOOD COUNT 7.4 10^3/ul (4.8-10.8)
--- NOTE | 2017-06-04 09:46 | RADRPT ---
PROCEDURE: XR Chest. CLINICAL INDICATION: Chest pain TECHNIQUE: Single frontal view of the chest was obtained. COMPARISON: None FINDINGS: The heart is within normal limits. The thoracic aorta is calcified. The lungs are clear. There is no pleural effusion or pneumothorax. RPTAT: AA IMPRESSION: No acute disease. Calcified aorta consistent with atherosclerotic disease. .Conner Grant MD, MD Date Time Electronically viewed and signed by .Conner Grant MD, on 06/04/2017 09:46 .S/
[2017-06-04 09:52] LABS: CREATININE 0.66 mg/dl (0.44-1.00); POTASSIUM 3.8 mmol/L (3.5-5.1)
[2017-06-04 10:17] LABS: TROPONIN-I 2.02 ng/ml (0.00-0.12)
[2017-06-04] MEDS ORDERED: LOSA50TA6 PO (10:44)
--- NOTE | 2017-06-04 10:44 | ERD ---
ER Documentation Chief Complaint Date/Time DATE: 06/04/17 TIME: 10:41 Chief Complaint SOB, LITTLE DIZZY SINCE LAST NIGHT, HX OF HEART STENT 2 DAYS AGO HPI This is a 61-year-old female who presents to the emergency room for evaluation of shortness of breath. The patient does state that she has a history of hypertension, and asthma. She states that she did have a cardiac angioplasty done approximately 2 days ago with a stent placed in her heart. She states that Dr. Foster is her heart doctor. This patient came to the emergency room for evaluation. She states that it does feel like it is her asthma.She localizes the pain to the center of the chest with no radiation sometimes worse with deep inspiration. ROS All systems reviewed and are negative except as per history of present illness. Medications Home Meds Reported Medications Gemfibrozil* (Lopid*) 600 Mg Tablet, 600 MG PO BID, TAB 06/01/17 Guaifenesin* (Robitussin*) 100 Mg/5 Ml Syrup, 100 MG PO Q4H Y for COUGH, ML 06/01/17 Insulin Aspart (Novolog) 100 Unit/1 Ml Cartridge, 100 UNIT SQ 06/01/17 Metoprolol Tartrate* (Lopressor*) 50 Mg Tab, 50 MG PO BID, #60 TAB 06/01/17 Ipratropium-Albuterol (Ipratropium-Albuterol) 0.5-3 Mg/3 Ml Ampul.neb, 1 ML INHALATION Q6, #30 VIAL 06/01/17 Albuterol Sulfate* (Albuterol Sulfate* Neb) 0.083%-3 Ml Neb, 2.5 MG NEB Q4H for SHORTNESS OF BREATH, #30 VIAL 06/01/17 Nitroglycerin (Nitrostat) 0.4 Mg Subl, 0.4 MG SL Q5MIN Y for CHEST PAIN, BOTTLE 06/01/17 Nitroglycerin* (Nitroglycerin* Patch) 0.1 mg/hr Patch, 1 PATCH TD DAILY, PATCH 06/01/17 Pantoprazole* (Protonix*) 40 Mg Tablet.dr, 40 MG PO DAILY, TAB 06/01/17 Azithromycin* (Azithromycin*) 250 Mg Tablet, 250 MG PO DAILY, #4 TAB 06/01/17 Metformin* (Glucophage*) 1,000 Mg Tablet, 1000 MG PO BID, #60 TAB 06/01/17 [Allergy Pill] No Conflict Check, PO 09/24/15 [Januvia] No Conflict Check, PO 09/24/15 Glimepiride* (Glimepiride*) 4 Mg Tablet, 4 MG PO WITH BREAKFAST, TAB 09/24/15 Discontinued Reported Medications Enoxaparin Sodium* (Lovenox*) 60 Mg/0.6 Ml Disp.syrin, 60 MG SQ Q12, SYR 06/01/17 Glipizide* (Glipizide*) 5 Mg Tablet, 5 MG PO AC BREAKFAST BEDTIME, TAB 06/01/17 Clopidogrel Bisulfate (Clopidogrel) 75 Mg Tablet, 75 MG PO DAILY, #30 TAB 06/01/17 Aspirin (Aspirin) 325 Mg Tablet.dr, 325 MG PO DAILY 06/01/17 Atorvastatin* (Atorvastatin*) 40 Mg Tablet, 40 MG PO QHS, #30 TAB 06/01/17 Metformin Hcl* (Metformin Hcl*) 500 Mg Tablet, 500 MG PO WITH BREAKFAST, #30 TAB 09/24/15 Allergies Allergies: Coded Allergies: NSAIDS (Non-Steroidal Anti-Inflamma (Verified Allergy, Unknown, 01/19/07) Penicillins (Verified Allergy, Unknown, 01/19/07) hydrocodone (Unverified Allergy, Unknown, 09/24/15) morphine (Verified Allergy, Unknown, 01/19/07) sumatriptan (Verified Allergy, Unknown, 01/19/07) tramadol (Unverified Allergy, Unknown, 09/24/15) PMhx/Soc History of Surgery: Yes (D/C CERVIX) Anesthesia Reaction: No Hx Neurological Disorder: No Hx Respiratory Disorders: Yes (ASTHMA, Bronchitis) Hx Cardiac Disorders: Yes (CAD, HTN) Hx Psychiatric Problems: No Hx Miscellaneous Medical Probl: Yes (DM, cholesterol) Hx Alcohol Use: No Hx Substance Use: No Hx Tobacco Use: No Smoking Status: Never smoker Physical Exam Vitals Vital Signs Date Time Temp Pulse Resp B/P Pulse Ox O2 Delivery O2 Flow Rate FiO2 06/04/17 09:16 63 20 98 21 06/04/17 08:37 96.9 75 20 189/95 100 Physical Exam INITIAL VITAL SIGNS: Reviewed by me GENERAL: The patient is well developed and appropriate for usual state of health in no apparent distress HEENT: Pupils equal, round, and reactive to light. EOMI. There is no scleral icterus. NECK: C-spine is soft and supple, there is no meningismus. There is no cervical lymphadenopathy. LUNGS: Bilateral wheezing auscultated in the lower lobes, HEART: Regular rate and rhythm, no murmurs, clicks, rubs or gallops. ABDOMEN: Soft, non-tender, non-distended. There are bowel sounds in all four quadrants. No rebound or guarding. EXTREMITIES: There is no peripheral cyanosis or edema. No focal swelling or erythema. NEUROLOGICAL: The patient moves all four extremities with 5/5 strength. Cranial nerves II - XII are intact. Normal gait. Alert and oriented SKIN: There is no apparent rash or petechiae. HEME/LYMPHATIC: There is no evidence of excessive bruising or lymphedema. PSYCHIATRIC: The patient does not appear anxious or depressed. Result Diagram: 06/04/17 0900 06/04/17 0900 Results 24 hrs Laboratory Tests Test 06/04/17 09:00 White Blood Count 7.410^3/ul Red Blood Count 5.1410^6/ul Hemoglobin 14.8g/dl Hematocrit 43.6% Mean Corpuscular Volume 84.8fl Mean Corpuscular Hemoglobin 28.8pg Mean Corpuscular Hemoglobin Concent 33.9g/dl Red Cell Distribution Width 12.4% Platelet Count 76355^3/UL Mean Platelet Volume 10.2fl Neutrophils % 71.1% Lymphocytes % 20.1% Monocytes % 7.1% Eosinophils % 0.8% Basophils % 0.5% Nucleated Red Blood Cells % 0.0/100WBC Neutrophils # 5.310^3/ul Lymphocytes # 1.510^3/ul Monocytes # 0.510^3/ul Eosinophils # 0.110^3/ul Basophils # 0.010^3/ul Nucleated Red Blood Cells # 0.010^3/ul Sodium Level 138mmol/L Potassium Level 3.8mmol/L Chloride Level 107mmol/L Carbon Dioxide Level 21mmol/L Anion Gap 14 Blood Urea Nitrogen 17mg/dl Creatinine 0.66mg/dl Glucose Level 206mg/dl Calcium Level 10.0mg/dl Troponin I 2.020ng/ml B-Type Natriuretic Peptide 576PG/ML Current Medications Medications (Trade) Dose Ordered Sig/[place] Route PRN Reason Start Time Stop Time Status Last Admin Dose Admin Albuterol (Proventil 0.5% (Neb)) 10 mg ONCE STAT INH 06/04/17 09:06 06/04/17 09:07 DC 06/04/17 09:15 Ipratropium [place] (Atrovent 0.02% (Neb)) 1 mg ONCE STAT INH 06/04/17 09:06 06/04/17 09:07 DC 06/04/17 09:15 Methylprednisolone Sodium Succinate (Solu-Medrol) 125 mg ONCE STAT IV 06/04/17 09:06 06/04/17 09:07 DC 06/04/17 10:25 Procedures/MDM EKG: Rate/Rhythm: Sinus bradycardia QRS, ST, T-waves: [No changes consistent w/ acute ischemia] Impression: [No evidence of ischemia or arrhythmia] Chest X-ray 1V Interpreted by me: Soft Tissue: No acute abnormalities Bones: No acute abnormalities Mediastinum/Cardiac Silhouette/Lungs: [No acute abnormalities] This 61-year-old female presents to the emergency room for evaluation of shortness of breath. This patient did have a stent placed 2 days ago in the LAD by Dr. Foster. I did obtain lab work on this patient and obtain a chest x- ray which was clear. This patient does have an elevated troponin however her troponin is trending down and it is elevated because she underwent a cardiac catheterization 48 hours ago. Her EKG shows sinus bradycardia. The patient had diffuse wheezing on my examination and the patient was given a breathing treatment. With albuterol and Atrovent. When I reevaluated this patient her heart rate was 85 bpm her oxygen level is 100 and she stated that her shortness of breath has completely resolved. Patient does have a history of asthma but was told not to use her albuterol inhaler because it could increase her heart rate. I advised her that she can use her inhaler if she was having shortness of breath and she verbalized understanding. I did contact the scrap preparation supervisor on- call for Dr. Foster, Dr. Rayo who I reviewed the patient's EKG and lab work with. He states the patient can be discharged at this time and follow-up with Dr. Foster on Tuesday. I have relayed this information to the patient who feels comfortable doing so. This patient will be discharged at this time. Departure Diagnosis: Primary Impression: Shortness of breath Additional Impression: Acute asthma exacerbation Condition: Stable CALEB URIARTE DO Jun 04, 2017 10:44
[2017-06-04] MEDS ORDERED: ASPI-664 PO (10:45)
[2017-06-04] MEDS ORDERED: TICA90TA PO (10:45)
[2017-06-04] MEDS ORDERED: ATOR80TA75 PO (10:45)
[2017-06-04] MEDS ORDERED: NIT3 SL (10:46)
[2017-06-04] MEDS ORDERED: ADV25050 INHALATION (10:47)
[2017-06-04] MEDS ORDERED: BUDE6HFA INHALATION (10:47)
[2017-06-04 10:57] VITALS: BP 112/60; PULSE 78; RESP 20
== END 2017-06-04 11:13 | disposition home or self-care (01) ==
LOC: E/R 08:36
DX: J45.901 Unspecified asthma with (acute) exacerbation (principal); I25.10 Atherosclerotic heart disease of native coronary artery without angina pectoris; I10 Essential (primary) hypertension; E11.9 Type 2 diabetes mellitus without complications; Z79.01 Long term (current) use of anticoagulants; Z79.4 Long term (current) use of insulin; Z79.82 Long term (current) use of aspirin; Z79.84 Long term (current) use of oral hypoglycemic drugs
CPT/HCPCS: 36415; 71010; 80048; 83880; 84484; 85025; 93005; 94644; 96374; J2930; Z7502; Z7610

== ENCOUNTER 2017-11-07 | Emergency (ER) | END 2017-11-07 02:05 | disposition left against medical advice (07) ==

== ENCOUNTER 2018-09-03 19:12 | Emergency (ER) | END 2018-09-04 00:30 | disposition home or self-care (01) ==